=== PATIENT | female | born 1975 | race Caucasian/White ===

== ENCOUNTER 2017-01-10 21:12 | Emergency (ER) | payer OTHER ==
[2017-01-10 21:59] LABS: HEMOGLOBIN 15.9 gm/dl (12.3-15.3); RED BLOOD COUNT 5.15 M/UL (4.00-5.10); WHITE BLOOD COUNT 14.8 K/UL (4.5-11.0)
[2017-01-10 22:16] LABS: BUN/CREATININE RATIO 6 (0-10)
== END 2017-01-11 08:05 ==
LOC: ER1 21:12
PROVIDERS: Emergency Medicine
DX: F22 Delusional disorders (principal); F13.10 Sedative, hypnotic or anxiolytic abuse, uncomplicated; F15.10 Other stimulant abuse, uncomplicated; E87.6 Hypokalemia; N39.0 Urinary tract infection, site not specified; R07.9 Chest pain, unspecified; J44.9 Chronic obstructive pulmonary disease, unspecified; F17.200 Nicotine dependence, unspecified, uncomplicated; Z88.0 Allergy status to penicillin; Z88.1 Allergy status to other antibiotic agents; Z79.899 Other long term (current) drug therapy
CPT/HCPCS: 36415; 70450; 71010; 80053; 80307; 81001; 82550; 82553; 83690; 83874; 84484; 84703; 85025; 85379; 93005; 96365; 96372; 96375; 96376; 99285; J0696; J1200; J1630; J2060; J2250; J7050; Q9963